=== PATIENT | male | born 1990 | race Hispanic/Latino ===

== ENCOUNTER 2017-12-25 14:35 | Emergency (ER) | payer OTHER, SELFPAY ==
[2017-12-25] MEDS ORDERED: IBUPROFEN 400 MG TABLET ONE (16:39)
[2017-12-25] MEDS ORDERED: IBUPROFEN 200 MG TAB ONE (16:39)
== END 2017-12-25 17:16 | disposition home or self-care (01) ==
LOC: EDH 14:35
DX: I80.01 Phlebitis and thrombophlebitis of superficial vessels of right lower extremity (principal); I10 Essential (primary) hypertension; Z72.0 Tobacco use
CPT/HCPCS: 36415; 85378

== ENCOUNTER 2018-10-22 14:34 | Emergency (ER) | payer OTHER, SELFPAY ==
[2018-10-22] MEDS ORDERED: IBUPROFEN 600 MG TABLET ONE (15:29)
== END 2018-10-22 15:34 | disposition home or self-care (01) ==
LOC: EDH 14:34
DX: S97.81XA Crushing injury of right foot, initial encounter (principal); I10 Essential (primary) hypertension; W23.0XXA Caught, crushed, jammed, or pinched between moving objects, initial encounter; Y93.89 Activity, other specified; Y92.89 Other specified places as the place of occurrence of the external cause; Y99.8 Other external cause status
CPT/HCPCS: 73630

== ENCOUNTER 2019-07-13 11:49 | Emergency (ER) | payer OTHER ==
[2019-07-13] MEDS ORDERED: ACETAMINOPHEN EXTRA STRENGTH 500 MG TABLET ONE (13:17)
[2019-07-13] MEDS ORDERED: ENOXAPARIN SODIUM 100 MG/1 ML SQ ONE (15:32)
[2019-07-13] MEDS ORDERED: ENOXAPARIN SODIUM 30 MG/0.3 ML SQ ONE (15:32)
== END 2019-07-13 15:42 | disposition home or self-care (01) ==
LOC: EDH 11:49
DX: I82.811 Embolism and thrombosis of superficial veins of right lower extremity (principal); I10 Essential (primary) hypertension; Z72.0 Tobacco use
CPT/HCPCS: 93971; 96372; 99284; J1650 ×2

== ENCOUNTER 2024-06-26 00:51 | Emergency (ER) | payer OTHER ==
[~2024-06-26] VITALS: Ht 193 cm; Wt 97.5 kg
[~2024-06-26 00:51] MED LIST: CEPH500B PO; KETO10TA2 PO
[2024-06-26 01:31] LABS: COVID19 (SARS ANTIGEN RAPID) PRESUMPTIVE NEGATIVE (NEGATIVE); INFLUENZA TYPE A Negative For Type A (NEGATIVE); INFLUENZA TYPE B Negative For Type B (NEGATIVE)
[2024-06-26] MEDS ORDERED: AZIT250T9 PO (01:45)
[2024-06-26] MEDS ORDERED: METH4TAB3 PO (01:45)
[2024-06-26 02:15] VITALS: BP 138/76; PULSE 74; RESP 20; TEMP 98.6; O2SAT 100
== END 2024-06-26 02:17 | disposition home or self-care (01) ==
LOC: EDH 00:51
DX: S51.011D Laceration without foreign body of right elbow, subsequent encounter (principal); Z20.822 Contact with and (suspected) exposure to COVID-19; B34.9 Viral infection, unspecified; Z48.02 Encounter for removal of sutures; Z91.030 Bee allergy status; Z79.899 Other long term (current) drug therapy; Z79.2 Long term (current) use of antibiotics; W45.8XXD Other foreign body or object entering through skin, subsequent encounter
CPT/HCPCS: 71045; 87426; 87804